=== PATIENT | female | born 1945 | race Caucasian/White ===

== ENCOUNTER 2017-10-20 01:16 | Inpatient (IN) | payer OTHER, MEDICAID ==
--- NOTE | 2017-10-20 01:42 | EDPHY ---
H & P Stated Complaint: AMS Time Seen by Provider: 10/20/17 01:19 HPI/ROS: HPI The patient presents with altered mental status which has been present for the last 1 hr. She is brought in by ambulance from [facility] where she has lived for the last several months in assisted living. She was found tonight to be less responsive than usual. Her urine was malodorous.. On review of her records it seems that she was admitted for hypoglycemia about 2 years ago. The patient is on able to provide any meaningful history due to her altered mental status.. She does have a most form with her stating that she would like CPR, would like selective treatment, does not want any artificial nutrition. REVIEW OF SYSTEMS Constitutional: Feels warm Eyes: No discharge. ENT: No sore throat. Cardiovascular: No chest pain, no palpitations. Respiratory: No cough, no shortness of breath. Gastrointestinal: No abdominal pain, no vomiting. Genitourinary: No hematuria. Musculoskeletal: No back pain. Skin: No rashes. Neurological: No headache. PMHx: Chronic encephalopathy of uncertain origin, diabetes, AFib on Eliquis, chronic hypoxic respiratory failure on 3-4 L of oxygen, CAD, sleep apnea, BKA, prior urinary tract infections Soc Hx: Resides at [facility] PHYSICAL General Appearance: Eyes open, though appears sleepy, tachypneic, diaphoretic Eyes: Pupils equal and round no pallor or injection ENT, Mouth: Mucous membranes dry Respiratory: There are no retractions, lungs are clear to auscultation, slightly tachypneic Cardiovascular: Regular rate and rhythm Gastrointestinal: Abdomen is obese and soft and non-tender, no masses, bowel sounds normal Neurological: Responds to simple questions, moves all extremities Skin: Warm and dry, no rashes Musculoskeletal: Neck is supple non tender Extremities: Left BKA Psychiatric: Patient is disoriented, stating yes when asked her name Source: Patient, EMS Exam Limitations: Clinical condition, Physical impairment - Medical/Surgical History Hx Asthma: Yes Hx Chronic Respiratory Disease: Yes Hx Diabetes: Yes Hx Cardiac Disease: Yes Hx Renal Disease: No Hx Cirrhosis: No Hx Alcoholism: No Hx HIV/AIDS: No Hx Splenectomy or Spleen Trauma: No Other PMH: morbid obesity, DM2 with peripheral neuropathy, hypothyroid, COPD, PE , CHF, HANY, asthma, GERD, afib, CAD, pain, depression - Social History Smoking Status: Unknown if ever smoked Constitutional: Initial Vital Signs Temperature (C) 38.6 C H 10/20/17 01:39 Heart Rate 109 H 10/20/17 01:39 Respiratory Rate 16 10/20/17 01:39 Blood Pressure 102/75 10/20/17 01:39 O2 Sat (%) 4 L 10/20/17 01:39 O2 Delivery Mode Oxymizer O2 (L/minute) 6 Allergies/Adverse Reactions: Cephalosporins Allergy (Verified 08/20/15 16:28) chlorpromazine Allergy (Verified 08/20/15 16:28) clarithromycin Allergy (Verified 08/20/15 16:28) clindamycin Allergy (Verified 08/20/15 16:28) doxycycline Allergy (Verified 08/20/15 16:28) erythromycin base Allergy (Verified 08/20/15 16:28) iodine Allergy (Verified 08/20/15 16:28) ketorolac Allergy (Verified 08/20/15 16:28) Latex, Natural Rubber Allergy (Verified 08/20/15 16:28) levofloxacin Allergy (Verified 08/20/15 16:28) Penicillins Allergy (Verified 08/20/15 16:28) Sulfa (Sulfonamide Antibiotics) Allergy (Verified 08/20/15 16:28) Home Medications: Medication Instructions Recorded ACETAZOLAMIDE [Acetazolamide] 500 mg PO BID 08/20/15 Acetaminophen [Tylenol 325mg (*)] 650 mg PO Q6 PRN 08/20/15 Amiodarone HCl [Pacerone (*)] 200 mg PO BID 08/20/15 Ascorbic Acid [Vitamin C 500 mg 500 mg PO BID 08/20/15 (*)] Atorvastatin Calcium [Lipitor 20 20 mg PO HS 08/20/15 mg (*)] Bupropion HCl [Bupropion HCl Sr] 100 mg PO DAILY 08/20/15 Diltiazem HCl [Diltiazem 24Hr Cd] 180 mg PO DAILY 08/20/15 Docusate Sodium [Colace 100 MG (*)] 100 mg PO BID 08/20/15 Ipratropium/Albuterol [Duoneb (*)] 3 ml IH Q4 PRN 08/20/15 Levothyroxine Sodium 200 mcg PO DAILY 06/27/16 Lidocaine 5% [Lidoderm 5% Patch] 1 ea TD DAILY 08/20/15 Nystatin Powder [Mycostatin Powder] 1 susu TP BID 08/20/15 Omeprazole [Prilosec 20 mg] 40 mg PO DAILY 08/20/15 Oxybutynin Chloride [OXYBUTYNIN 5 mg PO TID 08/20/15 CHLORIDE ER] Polyethylene Glycol 3350 [Miralax 17 gm PO DAILY 08/20/15 17 gm (*)] Potassium Cl [Klor-Con 20 meq (*)] 20 meq PO BID 08/20/15 Venlafaxine HCl [Effexor] 100 mg PO BID 08/20/15 oxyCODONE IR [Oxycodone Ir (*)] 5 mg PO Q4 PRN 08/20/15 traMADol [Ultram 50 mg (*)] 50 mg PO Q8 PRN 08/20/15 Albuterol [Proventil Neb] 3 ml IH Q2 PRN #0 deyvial 08/28/15 Alteplase [Cathflo Activase 2 mg 2 mg IVP PRN PRN #0 vial 08/28/15 (*)] Ipratropium/Albuterol [Duoneb (*)] 3 ml IH QID #0 deyvial 08/28/15 Meropenem [Merrem Inj 1 gm (*)] 1 gm IV Q12 #0 vial 08/28/15 Nystatin [Mycostatin Oral Liquid 500,000 unit PO QID #0 ml 08/28/15 (*)] Ondansetron Odt [Zofran Odt 4 mg 4 mg PO Q4 PRN #0 tab 08/28/15 (*)] Vancomycin HCl/Normal Saline 250 ml IV Q24H #0 bag 08/28/15 [Vancomycin 1 gm (Premix)] predniSONE 5 mg PO BIDMEAL #0 tablet 08/28/15 Medical Decision Making - Diagnostics EKG Interpretation: EKG: Complete interpretation has been separately recorded in the [facility] archive. Summary impression: Sinus tachycardia, QRS slightly wide, no ST segment elevations Imaging Results: Chest x-ray single view is difficult to interpret though shows cardiomegaly and possible left-sided infiltrate, radiology interpretation is pending. Imaging: I viewed and interpreted images myself Differential Diagnosis: 72-year-old female brought in by ambulance from long-term with altered mental status, found to be febrile and tachycardic here. Complex past medical history includes prior encephalopathy, diabetes, atrial fibrillation, chronic hypoxic respiratory failure, sleep apnea, CAD, BKA, prior urinary tract infection. The patient is able to answer simple questions though is altered. This seems to be a change from her baseline according to the long-term, however she does have some sort of history of chronic encephalopathy so difficult to assess how far from her baseline she is currently. When she was last in the hospital she did have a urinary tract infection with urine cultures positive for MRSA and Pseudomonas. This was treated with vancomycin and meropenem. In the emergency department, 2 IV lines were established and patient was given 2 L fluid bolus. I did not give full 30 cc/kilos bolus given her underlying heart disease. She improved with this and heart rate normalized. Blood pressure has remained stable. Labs were checked and did reveal leukocytosis of 20,000. UA was positive for infection. Chest x-ray was difficult to interpret though may demonstrate left- sided infiltrate. I plan to start her on broad-spectrum antibiotics for presumed urinary tract infection per her prior admission will use meropenem and vancomycin. Goals of care do include CPR though no intubation and avoiding intensive care. I consulted with Dr. Gabriel of the hospitalist service and we will admit her to the Step-Down Unit. Eventually we were able to contact her sister in [place] who is her DPOA She explained that over the last several months the patient has had a cognitive decline and has been confused occasionally. Her current mental status may not be far from her baseline. - Data Points Laboratory Results: Laboratory Results 10/20/17 01:44 10/20/17 01:44 10/20/17 10/20/17 10/20/17 01:44 01:44 01:44 WBC RBC Hgb Hct MCV MCH MCHC RDW Plt Count MPV Neut % (Auto) Lymph % (Auto) [place] % (Auto) Eos % (Auto) Baso % (Auto) Nucleat RBC Rel Count Absolute Neuts (auto) Absolute Lymphs (auto) Absolute Monos (auto) Absolute Eos (auto) Absolute Basos (auto) Absolute Nucleated RBC Immature Gran % Immature Gran # RBC/WBC/PLT Morphology Platelet Estimate Polychromasia Hypochromasia Microcytic Cells PT 17.8 SEC H SEC (12.0-15.0) INR 1.45 H (0.83-1.16) APTT 35.9 SEC SEC (23.0-38.0) VBG Lactic Acid Sodium 143 mEq/L mEq/L (135-145) Potassium 3.8 mEq/L mEq/L (3.3-5.0) Chloride 107 mEq/L mEq/L (97-110) Carbon Dioxide 30 mEq/l mEq/l (22-31) Anion Gap 6 mEq/L L mEq/L (8-16) BUN 18 mg/dL mg/dL (7-23) Creatinine 0.9 mg/dL mg/dL (0.6-1.0) Estimated GFR > 60 Glucose 142 mg/dL H mg/dL (70-100) Calcium 8.8 mg/dL mg/dL (8.5-10.4) Total Bilirubin 0.4 mg/dL mg/dL (0.1-1.4) Procalcitonin 0.45 ng/mL H ng/mL (0.02-0.10) Urine Color Urine Appearance Urine pH Ur Specific [place] Urine Protein Urine Ketones Urine Blood Urine Nitrate Urine Bilirubin Urine Urobilinogen Ur Leukocyte Esterase Urine RBC Urine WBC Ur Epithelial Cells Urine Mucus Urine Glucose 10/20/17 10/20/17 10/20/17 01:44 01:44 01:35 WBC 20.84 10^3/uL H 10^3/uL (3.80-9.50) RBC 3.79 10^6/uL L 10^6/uL (4.18-5.33) Hgb 9.7 g/dL L g/dL (12.6-16.3) Hct 34.2 % L % (38.0-47.0) MCV 90.2 fL fL (81.5-99.8) MCH 25.6 pg L pg (27.9-34.1) MCHC 28.4 g/dL L g/dL (32.4-36.7) RDW 16.1 % H % (11.5-15.2) Plt Count 233 10^3/uL 10^3/uL (150-400) MPV 9.2 fL fL (8.7-11.7) Neut % (Auto) 89.1 % H % (39.3-74.2) Lymph % (Auto) 2.0 % L % (15.0-45.0) Hale % (Auto) 7.7 % % (4.5-13.0) Eos % (Auto) 0.3 % L % (0.6-7.6) Baso % (Auto) 0.2 % L % (0.3-1.7) Nucleat RBC Rel Count 0.1 % % (0.0-0.2) Absolute Neuts (auto) 18.57 10^3/uL H 10^3/uL (1.70-6.50) Absolute Lymphs (auto) 0.42 10^3/uL L 10^3/uL (1.00-3.00) Absolute Monos (auto) 1.60 10^3/uL H 10^3/uL (0.30-0.80) Absolute Eos (auto) 0.06 10^3/uL 10^3/uL (0.03-0.40) Absolute Basos (auto) 0.04 10^3/uL 10^3/uL (0.02-0.10) Absolute Nucleated RBC 0.02 10^3/uL H 10^3/uL (0-0.01) Immature Gran % 0.7 % % (0.0-1.1) Immature Gran # 0.15 10^3/uL H 10^3/uL (0.00-0.10) RBC/WBC/PLT Morphology TNP Platelet Estimate ADEQUATE (ADEQ) Polychromasia 1+ H Hypochromasia 1+ H Microcytic Cells 1+ H PT INR APTT VBG Lactic Acid 1.4 mmol/L mmol/L (0.7-2.1) Sodium Potassium Chloride Carbon Dioxide Anion Gap BUN Creatinine Estimated GFR Glucose Calcium Total Bilirubin Procalcitonin Urine Color YELLOW Urine Appearance MODERATELY TURBID Urine pH 5.0 (5.0-7.5) Ur Specific [place] 1.019 (1.002-1.030) Urine Protein 1+ H (NEGATIVE) Urine Ketones NEGATIVE (NEGATIVE) Urine Blood 2+ H (NEGATIVE) Urine Nitrate NEGATIVE (NEGATIVE) Urine Bilirubin NEGATIVE (NEGATIVE) Urine Urobilinogen 2.0 EU H EU (0.2-1.0) Ur Leukocyte Esterase 2+ H (NEGATIVE) Urine RBC 50-182 /hpf H /hpf (0-3) Urine WBC 50-182 /hpf H /hpf (0-3) Ur Epithelial Cells TRACE /lpf /lpf (NONE-1+) Urine Mucus TRACE /lpf /lpf (NONE-1+) Urine Glucose NEGATIVE (NEGATIVE) Medications Given: Discontinued Medications Acetaminophen (Tylenol 160mg/5ml Oral Liquid) 1,000 mg PO EDNOW ONE Stop: 10/20/17 02:01 Last Admin: 10/20/17 02:07 Dose: 1,000 mg Meropenem 1 gm/ Sodium (Chloride) 120 mls @ 120 mls/hr IV EDNOW ONE PRN Reason: Protocol Stop: 10/20/17 02:46 Last Admin: 10/20/17 02:20 Dose: 120 mls Vancomycin HCl 1.5 gm/ (Dextrose) 250 mls @ 166.67 mls/hr IV EDNOW ONE PRN Reason: Protocol Stop: 10/20/17 03:16 Last Admin: 10/20/17 02:22 Dose: 250 mls Sodium Chloride (Ns) 2,000 mls @ 0 mls/hr IV EDNOW ONE; Wide Open PRN Reason: Protocol Stop: 10/20/17 02:06 Last Admin: 10/20/17 02:07 Dose: 2,000 mls Departure - Departure Disposition: [facility] Inpatient Acute Clinical Impression: Leukocytosis Urinary tract infection Qualifiers: Urinary tract infection type: site unspecified Hematuria presence: with hematuria Qualified Code(s): N39.0 - Urinary tract infection, site not specified ; R31.9 - Hematuria, unspecified; R31.9 - Hematuria, unspecified Altered mental status Qualifiers: Altered mental status type: somnolence Qualified Code(s): R40.0 - Somnolence Condition: Critical
[2017-10-20] MEDS ORDERED: MEROPENEM 1 GM in NS 100 ML IV ONE (01:47)
[2017-10-20] MEDS ORDERED: VANCOMYCIN 1.5 GM in D5W 250 ML IV ONE (01:47)
[2017-10-20 01:55] LABS: PLATELET COUNT 233 10^3/uL (150-400)
[2017-10-20] MEDS ORDERED: ACETAMINOPHEN 160 MG/5 ML UDCUP PO ONE (02:00)
[2017-10-20 02:03] LABS: INR 1.45 (0.83-1.16); PROTIME(PATIENT) 17.8 SEC (12.0-15.0)
[2017-10-20] MEDS ORDERED: NS 2,000 ML IV ONE (02:05)
[2017-10-20] MEDS ORDERED: ONDANSETRON DISINTEGRATING 4 MG TAB PO PRN (03:01)
[2017-10-20] MEDS ORDERED: ONDANSETRON 4 MG/2 ML VIAL IVP PRN (03:01)
--- NOTE | 2017-10-20 03:33 | PDGENHP ---
History and Physical - Chief Complaint Confusion - History of Present Illness 72 yo F w/ hx of morbid obesity, AF, CHRF, COPD, and PE presents with fever and altered mental status. Patient was noted by caregivers to be confused this evening. She was brought to the ED and noted to have a fever. She is unable to provide much history as she has depressed level of consciousness currently. She is arousable but inconsistently answers questions in one or two word phrases. She is A&Ox1 on my evaluation only able to tell me her name. Work-up in the ED notable for fever, leukocytosis, and infectious appearing UA. Of note, review of previous records reveals MRSA and Pseudomonas UTI. Case discussed with ED physician Dr. Nathan, previous records reviewed. History Information - Allergies/Home Medication List Allergies/Adverse Reactions: Cephalosporins Allergy (Verified 08/20/15 16:28) chlorpromazine Allergy (Verified 08/20/15 16:28) clarithromycin Allergy (Verified 08/20/15 16:28) clindamycin Allergy (Verified 08/20/15 16:28) doxycycline Allergy (Verified 08/20/15 16:28) erythromycin base Allergy (Verified 08/20/15 16:28) iodine Allergy (Verified 08/20/15 16:28) ketorolac Allergy (Verified 08/20/15 16:28) Latex, Natural Rubber Allergy (Verified 08/20/15 16:28) levofloxacin Allergy (Verified 08/20/15 16:28) Penicillins Allergy (Verified 08/20/15 16:28) Sulfa (Sulfonamide Antibiotics) Allergy (Verified 08/20/15 16:28) Home Medications: ACETAZOLAMIDE [Acetazolamide] 500 mg PO BID 08/20/15 [Last Taken Unknown] Acetaminophen [Tylenol 325mg (*)] 650 mg PO Q6 PRN 08/20/15 [Last Taken Unknown] Amiodarone HCl [Pacerone (*)] 200 mg PO BID 08/20/15 [Last Taken Unknown] Ascorbic Acid [Vitamin C 500 mg (*)] 500 mg PO BID 08/20/15 [Last Taken Unknown] Atorvastatin Calcium [Lipitor 20 mg (*)] 20 mg PO HS 08/20/15 [Last Taken Unknown] Bupropion HCl [Bupropion HCl Sr] 100 mg PO DAILY 08/20/15 [Last Taken Unknown] Diltiazem HCl [Diltiazem 24Hr Cd] 180 mg PO DAILY 08/20/15 [Last Taken Unknown] Docusate Sodium [Colace 100 MG (*)] 100 mg PO BID 08/20/15 [Last Taken Unknown] Ipratropium/Albuterol [Duoneb (*)] 3 ml IH Q4 PRN 08/20/15 [Last Taken Unknown] Levothyroxine Sodium 200 mcg PO DAILY 08/20/15 [Last Taken Unknown] Lidocaine 5% [Lidoderm 5% Patch] 1 ea TD DAILY 08/20/15 [Last Taken Unknown] Nystatin Powder [Mycostatin Powder] 1 susu TP BID 08/20/15 [Last Taken Unknown] Omeprazole [Prilosec 20 mg] 40 mg PO DAILY 08/20/15 [Last Taken Unknown] Oxybutynin Chloride [OXYBUTYNIN CHLORIDE ER] 5 mg PO TID 08/20/15 [Last Taken Unknown] Polyethylene Glycol 3350 [Miralax 17 gm (*)] 17 gm PO DAILY 08/20/15 [Last Taken Unknown] Potassium Cl [Klor-Con 20 meq (*)] 20 meq PO BID 08/20/15 [Last Taken Unknown] Venlafaxine HCl [Effexor] 100 mg PO BID 08/20/15 [Last Taken 08/20/15] oxyCODONE IR [Oxycodone Ir (*)] 5 mg PO Q4 PRN 08/20/15 [Last Taken Unknown] traMADol [Ultram 50 mg (*)] 50 mg PO Q8 PRN 08/20/15 [Last Taken Unknown] I have personally reviewed and updated: family history, medical history - Past Medical History atrial fibrillation, COPD, GERD, pulmonary embolism - Surgical History Additional surgical history: Unable to answer 2/2 mental status - Family History Additional family history: Unable to answer 2/2 mental status - Social History Smoking Status: Unknown if ever smoked Review of Systems Review of Systems: Unable to answer 2/2 mental status Physical Exam Physical Exam: Temp Pulse Resp BP Pulse Ox 38.2 C 96 20 109/66 95 10/20/17 03:21 10/20/17 03:21 10/20/17 03:21 10/20/17 03:21 10/20/17 03:21 O2 (L/minute) 4 Constitutional: obese, uncomfortable Eyes: PERRL, anicteric sclera Ears, Nose, Mouth, Throat: moist mucous membranes, no oral mucosal ulcers Cardiovascular: regular rate and rhythym, systolic murmur Respiratory: reduced air movement, No expiratory wheeze Gastrointestinal: normoactive bowel sounds, soft, non-tender abdomen Skin: warm, normal color Musculoskeletal: no joint effusions, other (S/p L BKA) Neurologic: other (A&Ox1), No facial droop Psychiatric: encephalopathic, poor insight, poor memory Lab Data & Imaging Review 10/20/17 01:44 10/20/17 01:44 WBC 20.84 10^3/uL (3.80-9.50) H 10/20/17 01:44 RBC 3.79 10^6/uL (4.18-5.33) L 10/20/17 01:44 Hgb 9.7 g/dL (12.6-16.3) L 10/20/17 01:44 Hct 34.2 % (38.0-47.0) L 10/20/17 01:44 MCV 90.2 fL (81.5-99.8) 10/20/17 01:44 MCH 25.6 pg (27.9-34.1) L 10/20/17 01:44 MCHC 28.4 g/dL (32.4-36.7) L 10/20/17 01:44 RDW 16.1 % (11.5-15.2) H 10/20/17 01:44 Plt Count 233 10^3/uL (150-400) 10/20/17 01:44 MPV 9.2 fL (8.7-11.7) 10/20/17 01:44 Neut % (Auto) 89.1 % (39.3-74.2) H 10/20/17 01:44 Lymph % (Auto) 2.0 % (15.0-45.0) L 10/20/17 01:44 [place] % (Auto) 7.7 % (4.5-13.0) 10/20/17 01:44 Eos % (Auto) 0.3 % (0.6-7.6) L 10/20/17 01:44 Baso % (Auto) 0.2 % (0.3-1.7) L 10/20/17 01:44 Nucleat RBC Rel Count 0.1 % (0.0-0.2) 10/20/17 01:44 Absolute Neuts (auto) 18.57 10^3/uL (1.70-6.50) H 10/20/17 01:44 Absolute Lymphs (auto) 0.42 10^3/uL (1.00-3.00) L 10/20/17 01:44 Absolute Monos (auto) 1.60 10^3/uL (0.30-0.80) H 10/20/17 01:44 Absolute Eos (auto) 0.06 10^3/uL (0.03-0.40) 10/20/17 01:44 Absolute Basos (auto) 0.04 10^3/uL (0.02-0.10) 10/20/17 01:44 Absolute Nucleated RBC 0.02 10^3/uL (0-0.01) H 10/20/17 01:44 Immature Gran % 0.7 % (0.0-1.1) 10/20/17 01:44 Immature Gran # 0.15 10^3/uL (0.00-0.10) H 10/20/17 01:44 RBC/WBC/PLT Morphology TNP 10/20/17 01:44 Platelet Estimate ADEQUATE (ADEQ) 10/20/17 01:44 Polychromasia 1+ H 10/20/17 01:44 Hypochromasia 1+ H 10/20/17 01:44 Microcytic Cells 1+ H 10/20/17 01:44 PT 17.8 SEC (12.0-15.0) H 10/20/17 01:44 INR 1.45 (0.83-1.16) H 10/20/17 01:44 APTT 35.9 SEC (23.0-38.0) 10/20/17 01:44 VBG Lactic Acid 1.4 mmol/L (0.7-2.1) 10/20/17 01:44 Sodium 143 mEq/L (135-145) 10/20/17 01:44 Potassium 3.8 mEq/L (3.3-5.0) 10/20/17 01:44 Chloride 107 mEq/L (97-110) 10/20/17 01:44 Carbon Dioxide 30 mEq/l (22-31) 10/20/17 01:44 Anion Gap 6 mEq/L (8-16) L 10/20/17 01:44 BUN 18 mg/dL (7-23) 10/20/17 01:44 Creatinine 0.9 mg/dL (0.6-1.0) 10/20/17 01:44 Estimated GFR > 60 10/20/17 01:44 Glucose 142 mg/dL (70-100) H 10/20/17 01:44 Calcium 8.8 mg/dL (8.5-10.4) 10/20/17 01:44 Total Bilirubin 0.4 mg/dL (0.1-1.4) 10/20/17 01:44 Urine Color YELLOW 10/20/17 01:35 Urine Appearance MODERATELY TURBID 10/20/17 01:35 Urine pH 5.0 (5.0-7.5) 10/20/17 01:35 Ur Specific [place] 1.019 (1.002-1.030) 10/20/17 01:35 Urine Protein 1+ (NEGATIVE) H 10/20/17 01:35 Urine Ketones NEGATIVE (NEGATIVE) 10/20/17 01:35 Urine Blood 2+ (NEGATIVE) H 10/20/17 01:35 Urine Nitrate NEGATIVE (NEGATIVE) 10/20/17 01:35 Urine Bilirubin NEGATIVE (NEGATIVE) 10/20/17 01:35 Urine Urobilinogen 2.0 EU (0.2-1.0) H 10/20/17 01:35 Ur Leukocyte Esterase 2+ (NEGATIVE) H 10/20/17 01:35 Urine RBC 50-182 /hpf (0-3) H 10/20/17 01:35 Urine WBC 50-182 /hpf (0-3) H 10/20/17 01:35 Ur Epithelial Cells TRACE /lpf (NONE-1+) 10/20/17 01:35 Urine Mucus TRACE /lpf (NONE-1+) 10/20/17 01:35 Urine Glucose NEGATIVE (NEGATIVE) 10/20/17 01:35 Visualized and Interpreted Chest x-ray results: Yes Chest X-Ray results: other (Infiltrate vs. aletectasis LLL) Visualized and Interpreted EKG results: Yes EKG Interpretation: Positive for: normal sinsus rhythm, NS ST wave abnormalities Assessment & Plan Assessment: 72 yo F w/ AF, CHRF, COPD, PE, and morbid obesity presents with sepsis most likely 2/2 urinary tract infection. Plan: 1. Sepsis - Suspect source is urinary noting appearance of UA. She does have infiltrate vs. atelectasis LLL on CXR(personally interpreted) but denies respiratory symptoms and is near O2 baseline currently. 4/4 SIRS criteria currently and SOFA of 7. - Vancomycin and Meropenem initially noting history of MRSA and Pseudomonas ( previous ID recs) - Blood and urine cultures pending - IVF, monitor I/Os 2. Acute encephalopathy - Likely related to sepsis described above. Patient currently A&Ox1 only. - Acute treatment of infection as above - Avoid centrally acting medications 3. CHRF - 4 L/min O2 at baseline, currently saturating low 90's on the same. Suspect this is due to HANY/OHS + COPD. - Continue O2 to maintain O2 sats>90% 4. AF - In NSR on admission; on diltiazem, amiodarone, and apixaban as outpatient. - Needs med reconciliation 5. Hx PE - On apixaban as outpatient 6. Morbid obesity - BMI 48.8. 7. COPD - Continue home medications, no evidence of acute exacerbation. Diet - NPO until mental status improves Code - Full Ppx - apixaban Dispo - Admit under inpatient status noting sepsis and need for IV antibiotics
--- NOTE | 2017-10-20 07:00 | CPEKG ---
Test Reason : OPEN Blood Pressure : / mmHG Vent. Rate : 102 BPM Atrial Rate : 102 BPM P-R Int : 197 ms QRS Dur : 117 ms QT Int : 332 ms P-R-T Axes : 029 090 009 degrees QTc Int : 433 ms Sinus tachycardia Nonspecific intraventricular conduction delay Borderline T abnormalities, anterior leads ST elevation, consider inferior injury Confirmed by Nimco Nathan ([id number]) on 10/20/2017 6:59:59 AM Referred By: Confirmed By:Nimco Nathan
--- NOTE | 2017-10-20 08:37 | ASMTLACE ---
NICOLLE Acuity / Level of Answers: Yes Care: Did the patient have an inpatient admission? Comorbidities - select Answers: Chronic pulmonary disease all that apply Congestive heart failure Coronary Artery Disease Diabetes (uncontrolled or controlled) Opioid dependence / Chronic pain Other Notes: AFib; Hx of PE # of Emergency department Answers: 1-2 visits in the last 6 months Social determinants Answers: Mental health diagnosis (anxiety, depression, pers onality disorders, etc.) Score: 19 Date Signed: 10/20/2017 08:36 AM Electronically Signed By:Vianney Power
[2017-10-20] MEDS ORDERED: ENOXAPARIN 40 MG/0.4 ML SYR SC SCH (09:00)
[2017-10-20] MEDS: MEROPENEM 1 GM in NS 100 ML IV SCH ×2 (09:15→19:09)
--- NOTE | 2017-10-20 10:09 | ASMTCASEMG ---
Living Arrangements What is your living Answers: With Spouse arrangement? Who do you live with? Type Of Residence What kind of residence do Answers: Apartment you live in? Discharge Plan Comments Coordination Status Comments Notes: Patient is a 72yo female with HX of morbid obesity, AF, CHRF, COPD, and PE presents with fever and altered mental status. Patient was admitted for sepsis, acute encephalopathy, CHRF and AF. Cardiac rehab has been ordered. D/C needs TBD. CM will follow. Date Signed: 10/20/2017 09:49 AM Electronically Signed By:Amarilis Oconnell LCSW
--- NOTE | 2017-10-20 10:18 | HOSPPROG ---
Hospitalist Progress Note Assessment/Plan: HOSPITALIST FOLLOW-UP VISIT ON ADMISSION DAY DIAGNOSES: * acute sepsis * acute urinary tract infection * acute encephalopathy due to above * normocytic anemia * chronic hypoxemic respiratory failure and COPD * history of PE * history of AFib with currently inadequate anticoagulation for stroke prevention PLANS: * Continue current antibiotics * Continue IV hydration as she is not hydrating orally * Increase activity/mobility as she becomes able, PT and OT * As she is unable to safely swallow will need to make her NPO and hold her on her oral medicines at this time SUBJECTIVE: Patient is unable to hold a conversation to review any symptoms at this time OBJECTIVE Vitals reviewed: Intermittently tachypneic otherwise stable blood pressures and pulse so far this morning, highest temperature overnight 39 Electrical Test Technician, my review: Sinus Exam: Awake but moderately obtunded, not really conversant, unable to have a conversation, following commands poorly (per nurses report to me this is better than when she came in last night) skin warm dry color ok resps not labored lungs very diminished, hard to auscultate with poor inspiratory effort heart regular abd soft nondistended nontender, bowel sounds present limbs warm, no edema iv site ok Laboratory data: No new labs since admission at this time Greater than 35 min spent at bedside with the patient and nurse today in addition to the time previously spent by Dr. Chica Mejia on his admission. Seen by me on hospitalist rounds as well as multidisciplinary rounds today Objective: Vital Signs Temp Pulse Resp BP Pulse Ox 36.8 C 78 21 H 142/80 H 96 10/20/17 07:45 10/20/17 07:45 10/20/17 07:45 10/20/17 07:45 10/20/17 07:45 10/19/17 10/20/17 10/21/17 06:59 06:59 06:59 Intake Total 2000 Output Total 30 Balance 1970 PT 17.8 SEC (12.0-15.0) H 10/20/17 01:44 INR 1.45 (0.83-1.16) H 10/20/17 01:44 ICD10 Worksheet Patient Problems: Problems Problem Status Onset Altered mental status Acute Leukocytosis Acute Urinary tract infection Acute Chronic atrial fibrillation Acute Hypoglycemia Acute MRSA (methicillin resistant Staphylococcus aureus) Acute 08/20/15 Palliative care encounter Acute
--- NOTE | 2017-10-20 11:04 | PDMN ---
Medical Necessity Medical necessity: [facility] [place] M160 Sepsis and Other Febrile Illness, w/o Focal Infection: 72 y/o w/ fever and AMS, dx w/ sepsis, suspected source urinary. Temp 39C. Tachy 109. WBC 20.84IV antix started, IVF started, BC and UC pending. Acute encephalopathy r/t sepsis. NPO status. Admit under IP status noting sepsis and need for IV antibx. . Hx morbid obesity, AF, CHRF, COPD and PE, MRSA and pseudomonas UTI
[2017-10-20] MEDS: VANCOMYCIN 1.5 GM in NS 250 ML IV SCH (17:01)
[2017-10-20 19:45] LABS: PLATELET COUNT 242 10^3/uL (150-400)
[2017-10-21] MEDS: MEROPENEM 1 GM in NS 100 ML IV SCH ×3 (01:48→17:38)
[2017-10-21] MEDS: VANCOMYCIN 1.5 GM in NS 250 ML IV SCH (05:11)
[2017-10-21] MEDS ORDERED: PNEUMOC 13-VAL CONJ-DIP CRM/PF 0.5 ML SYR IM ONE ×2 (11:13→16:00)
[2017-10-21] MEDS ORDERED: ONDANSETRON DISINTEGRATING 4 MG TAB PO PRN (15:00)
[2017-10-21] MEDS ORDERED: IPRATROPIUM/ALBUTEROL 3 ML DEYVIAL IH PRN (15:00)
[2017-10-21] MEDS: AMIODARONE HCL 200 MG TAB PO SCH (15:58)
--- NOTE | 2017-10-21 16:18 | HOSPPROG ---
Hospitalist Progress Note Assessment/Plan: 72 yo F w/ AF, CHRF, COPD, PE, and morbid obesity presents with sepsis most likely 2/2 urinary tract infection. Plan: 1. Sepsis/Bacteremia - Suspect source is urinary noting appearance of UA. She does have infiltrate vs. atelectasis LLL on CXR(personally interpreted) but denies respiratory symptoms and is near O2 baseline currently. 4/4 SIRS criteria currently and SOFA of 7. -E-coli 1/2 BCx 2. Acute encephalopathy - Likely related to sepsis described above. Patient currently A&Ox1 only. - Acute treatment of infection as above - Avoid centrally acting medications 3. CHRF - 4 L/min O2 at baseline, currently saturating low 90's on the same. Suspect this is due to HANY/OHS + COPD. - Continue O2 to maintain O2 sats>90% 4. AF - In NSR on admission; on diltiazem, amiodarone, and apixaban 5. Hx PE - On apixaban 6. Morbid obesity - BMI 48.8. 7. COPD - Continue home medications, no evidence of acute exacerbation. Plan: stop Vancomycin Cont Meropenem, if stable tomorrow, consider deescalating further. multiple abx allergies noted PT ordered today restart home meds today Subjective: doing better. no resp sympotms. no cough. feels better Objective: Vital Signs Temp Pulse Resp BP Pulse Ox 36.4 C 73 16 119/64 91 L 10/21/17 15:41 10/21/17 15:41 10/21/17 15:41 10/21/17 15:41 10/21/17 15:41 Laboratory Results 10/20/17 18:10 10/20/17 18:10 10/20/17 10/21/17 10/22/17 05:59 05:59 05:59 Intake Total 1999 1220 400 Output Total 30 275 2300 Balance 1969 945 -1900 PT 17.8 SEC (12.0-15.0) H 10/20/17 01:44 INR 1.45 (0.83-1.16) H 10/20/17 01:44 - Physical Exam Constitutional: chronically ill appearing Eyes: PERRL Ears, Nose, Mouth, Throat: moist mucous membranes Cardiovascular: regular rate and rhythym, No edema Respiratory: no respiratory distress, no rales or rhonchi Gastrointestinal: normoactive bowel sounds, soft, non-tender abdomen Skin: warm Musculoskeletal: generalized weakness Neurologic: AAOx3 Psychiatric: interacting appropriately, not anxious, not encephalopathic Lymph, Heme, Immunologic: No petechiae ICD10 Worksheet Patient Problems: Problems Problem Status Onset Altered mental status Acute Leukocytosis Acute Urinary tract infection Acute Chronic atrial fibrillation Acute Hypoglycemia Acute MRSA (methicillin resistant Staphylococcus aureus) Acute 08/20/15 Palliative care encounter Acute
[2017-10-21] MEDS ORDERED: LIDOCAINE 4%/MENTHOL 1% PATCH TD PRN (16:45)
[2017-10-21] MEDS: APIXABAN 5 MG TAB PO SCH (20:57)
[2017-10-21] MEDS: ACETAMINOPHEN 325 MG TAB PO PRN (20:57)
[2017-10-21] MEDS: ATORVASTATIN CALCIUM 20 MG TAB PO SCH (20:57)
[2017-10-21] MEDS: NYSTATIN POWDER 15 GM BTL TP SCH (20:58)
[2017-10-21] MEDS: PATCH REMOVAL 1 EA PATCH TD SCH (22:34)
[2017-10-21] MEDS: oxyCODONE IR 5 MG TAB PO PRN (23:13)
[2017-10-22] MEDS: MEROPENEM 1 GM in NS 100 ML IV SCH ×3 (02:08→19:09)
[2017-10-22] MEDS ORDERED: LEVOTHYROXINE 175 MCG TAB ONE (03:43)
[2017-10-22] MEDS: ACETAMINOPHEN 325 MG TAB PO PRN ×3 (03:53→21:36)
[2017-10-22] MEDS: LEVOTHYROXINE 175 MCG TAB PO SCH (03:53)
[2017-10-22 04:31] LABS: PLATELET COUNT 264 10^3/uL (150-400)
[2017-10-22] MEDS: VENLAFAXINE XR 75 MG CAP PO SCH (08:45)
[2017-10-22] MEDS: PANTOPRAZOLE SODIUM 40 MG TAB PO SCH (08:46)
[2017-10-22] MEDS: APIXABAN 5 MG TAB PO SCH ×2 (08:46→21:37)
[2017-10-22] MEDS: predniSONE 5 MG TAB PO SCH (08:46)
[2017-10-22] MEDS: DILTIAZEM CD 180 MG CAP PO SCH (08:47)
[2017-10-22] MEDS: AMIODARONE HCL 200 MG TAB PO SCH (08:48)
[2017-10-22] MEDS: VENLAFAXINE XR 37.5 MG CAP PO SCH (08:48)
[2017-10-22] MEDS: NYSTATIN POWDER 15 GM BTL TP SCH ×2 (10:19→21:37)
--- NOTE | 2017-10-22 13:53 | ASMTCMCOM ---
CM Note CM Note Notes: Pts case discussed w/ Dr. Herrera regarding d/c POC. Pt lives at [facility]. CM spoke to Orion at [facility] and sent him updates. CM to follow. Plan: [facility] Date Signed: 10/22/2017 01:53 PM Electronically Signed By:DARON Alejandre
[2017-10-22] MEDS: oxyCODONE IR 5 MG TAB PO PRN (18:06)
--- NOTE | 2017-10-22 18:09 | HOSPPROG ---
Hospitalist Progress Note Assessment/Plan: 72 yo F w/ AF, CHRF, COPD, PE, and morbid obesity presents with sepsis most likely 2/2 urinary tract infection. Plan: # Sepsis - presumed due to urinary source, no longer meeting sepsis criteria # e coli bacteremia: urinary source, has been on meropenem given multiple allergies however is sensitive to levofloxacin which she is not allergic to, will transtion for a 2 week total course. Repeat cultures drawn today # UTI: patient not with a chronic pavon, she does use diapers at home, multiple organisms noted on urine culture all with high colony counts, reviewed with ID, clearly it is the e coli causing her illness so will target treatment to that only # acute encephalopathy: due to sepsis and now resolved # chronic hypoxic respiratory failure: baseline 4L o2 need, at baseline, underlying steph/ohs/copd # p a fib: SR on personal review of arrival ecg, continue dilt, amiodarone, apixaban # hx of PE: continue apixaban # morbid obesity: BMI 57 # COPD: without e/o exacerbation # IP status, patient resides at [facility], likely ready for dc in coming 1- 2 days Subjective: no significant overnight events, patient notes that hse feels better today more herself and more alert Objective: Vital Signs Temp Pulse Resp BP Pulse Ox 36.5 C 81 16 154/85 H 95 10/22/17 16:00 10/22/17 16:00 10/22/17 16:00 10/22/17 16:00 10/22/17 16:00 Laboratory Results 10/22/17 03:53 10/22/17 03:53 10/21/17 10/22/17 10/23/17 05:59 05:59 05:59 Intake Total 1220 1350 270 Output Total 275 3400 500 Balance 945 -2050 -230 PT 17.8 SEC (12.0-15.0) H 10/20/17 01:44 INR 1.45 (0.83-1.16) H 10/20/17 01:44 Constitutional: chronically ill appearing Eyes: PERRL Ears, Nose, Mouth, Throat: moist mucous membranes Cardiovascular: regular rate and rhythym, No edema Respiratory: no respiratory distress, no rales or rhonchi Gastrointestinal: normoactive bowel sounds, soft, non-tender abdomen Skin: warm Musculoskeletal: generalized weakness Neurologic: AAOx3 Psychiatric: interacting appropriately, not anxious, not encephalopathic Lymph, Heme, Immunologic: No petechiae ICD10 Worksheet Patient Problems: Problems Problem Status Onset Altered mental status Acute Leukocytosis Acute Urinary tract infection Acute Chronic atrial fibrillation Acute Hypoglycemia Acute MRSA (methicillin resistant Staphylococcus aureus) Acute 08/20/15 Palliative care encounter Acute
[2017-10-22] MEDS: ATORVASTATIN CALCIUM 20 MG TAB PO SCH (21:37)
[2017-10-22] MEDS: PATCH REMOVAL 1 EA PATCH TD SCH (21:41)
[2017-10-23] MEDS: oxyCODONE IR 5 MG TAB PO PRN (01:48)
[2017-10-23] MEDS: LEVOTHYROXINE 175 MCG TAB PO SCH (01:49)
[2017-10-23] MEDS: ACETAMINOPHEN 325 MG TAB PO PRN ×2 (09:09→19:04)
[2017-10-23] MEDS: APIXABAN 5 MG TAB PO SCH ×2 (09:10→22:18)
[2017-10-23] MEDS: VENLAFAXINE XR 75 MG CAP PO SCH (09:12)
[2017-10-23] MEDS: predniSONE 5 MG TAB PO SCH (09:13)
[2017-10-23] MEDS: VENLAFAXINE XR 37.5 MG CAP PO SCH (09:13)
[2017-10-23] MEDS: AMIODARONE HCL 200 MG TAB PO SCH (09:13)
[2017-10-23] MEDS: DILTIAZEM CD 180 MG CAP PO SCH (09:14)
[2017-10-23] MEDS: PANTOPRAZOLE SODIUM 40 MG TAB PO SCH (09:15)
[2017-10-23] MEDS ORDERED: ALTEPLASE 2 MG VIAL IVP PRN (10:34)
[2017-10-23] MEDS: NYSTATIN POWDER 15 GM BTL TP SCH ×2 (11:02→22:18)
--- NOTE | 2017-10-23 11:05 | GCON ---
[f rep st] CONSULTATION DATE OF CONSULTATION: 10/23/2017 REFERRING PHYSICIAN: Christiano Herrera MD REASON FOR CONSULT: To assist in the management of this 72-year-old female admitted with E coli bacteremia from a urinary source, with multiple antibiotic allergies. HISTORY OF PRESENT ILLNESS: Ms. Olsen is a 72-year-old female whose previous medical history is notable for the following. 1. Morbid obesity. 2. Atrial fibrillation. 3. COPD. 4. Pulmonary embolus. 5. CAD. 6. Sleep apnea. 7. Previous urinary tract infections. 8. Left BKA. Regarding her present issues, the patient normally resides at [facility]. She presented to [facility] on October 20 via EMS for diminished responsiveness and concern for sepsis from a urinary source, as her urine was found to be malodorous. In the emergency room, the patient had a white blood cell count of 20,000, and her urinalysis was notable for pyuria with 50-182 whites, 1+ protein, 2+ blood, and 2+ leukocyte esterase. Blood cultures were drawn, and the patient was started on vancomycin and meropenem empirically. Blood cultures ultimately grew E coli. She was continued on meropenem on the floor (she never required pressors or the Intensive Care Unit). Yesterday, she was switched to levofloxacin given susceptibilities of the E coli. The patient , of note, has multiple antibiotic allergies, but apparently is not allergic to the quinolone family of antibiotics. I am asked to assist in her management this morning. Looking at the patient's medications, it is unfortunate that there is a notable drug interaction with levofloxacin and 1 of her cardiac medicines, amiodarone, which can cause QTc prolongation. Please see plan as outlined below. Speaking with the patient today, she is in good spirits and feels much better overall. She still has a Joaquin catheter in place. She denies shaking chills, headaches, chest pain, shortness of breath, abdominal pain, diarrhea, or other. The patient is uncomfortable in the bed. ALLERGIES: The patient has multiple allergies that I tried to review with her today. She states that she had a severe rash from cephalosporins. It is also listed that she has a rash to chlorpromazine, clarithromycin, clindamycin, and several other medicines. MEDICATIONS: Presently include levofloxacin 750 mg of which she was given 1 dose, Effexor XR 150 mg/37.5 mg, prednisone 5 mg daily, pantoprazole 40 mg p.o. daily, oxycodone, Zofran, Synthroid 175 mcg daily, atorvastatin 20 mg HS, Cardizem 100 mg p.o. daily. Eliquis 5 mg p.o. twice daily, amiodarone 200 mg p.o. daily, duo nebs, and Tylenol. SOCIAL HISTORY: The patient does not smoke or drink. She lives at [facility]. No travel. FAMILY HISTORY: Not remarkable. REVIEW OF SYSTEMS: As outlined above. Otherwise, 10 systems are reviewed and are negative. PHYSICAL EXAM: VITAL SIGNS: T current is 37.1, T-max is the same, heart rate is 67, blood pressure 173/73, 91% on 2 L. General: Morbidly obese female, sitting in bed eating and watching TV. No apparent distress. Atraumatic, normocephalic. HEENT: Pupils equal, round, reactive to light. Extraocular movements are intact. No conjunctival injection. No icterus or petechiae. No sinus process tenderness or discharge from the nares. Mucous membranes moist. No oral lesions noted. Dentition in fair repair. NECK: Trachea is midline. No cervical or supraclavicular lymphadenopathy. CARDIOVASCULAR: S1, S2. No audible rubs, gallops, or murmurs although very distant heart sounds secondary to body habitus. LUNGS: Clear to auscultation anterolaterally. ABDOMEN: Obese, soft. No tenderness to palpation. A Joaquin catheter is in place. There is some skin maceration under her pannus that looks more like an abrasion as opposed to intertriginous candidiasis. EXTREMITIES: No clubbing, cyanosis, or edema. The patient is status post a left BKA with a well-healed stump. SKIN: Notable for multiple ecchymoses on her arms and hands and some scaly skin on her right foot. PSYCH: The patient is alert and oriented x3. LABORATORY DATA: Microbiologic data: Blood cultures x2 on the are pending. Blood cultures on October 12 grew E coli, resistant only to ampicillin. The urine specimen from October 20 grew greater than 100,000 colonies of Providencia stuartii, greater than 100,000 colonies of E coli, greater than 100,000 colonies of Proteus mirabilis. All organisms are susceptible to ertapenem. Radiographic data: None with the exception of a chest x-ray upon admission that was notable for some atelectasis. IMPRESSION: 72-year-old morbidly obese female with multiple medical problems, admitted with E coli sepsis from a urinary source. She has multiple antibiotic allergies that preclude the use of cephalosporins and unfortunately, the quinolones interact with amiodarone, precluding their use as well. PLAN: 1. The patient will require a PICC line for 7 more days of therapy with ertapenem 1 g IV daily. Stop date is October 30. 2. Would try to get Joaquin catheter out as soon as possible and encourage good genitourinary hygiene. 3. Discontinue levofloxacin. 4. The patient will get her 1st dose of ertapenem tomorrow and can likely go back to [facility] shortly thereafter. Suspect she will tolerate this antibiotic just fine, as she tolerated meropenem without incident. Thank you very much for consulting Infectious Disease. We will continue to follow the patient with you. /[id number]/MODL MTDD
[2017-10-23] MEDS: oxyCODONE IR 5 MG TAB PO SCH ×2 (12:05→22:18)
--- NOTE | 2017-10-23 12:07 | HOSPPROG ---
Hospitalist Progress Note Assessment/Plan: # UTI with e. coli bacteremia - given multiple abx sensitivities, ID plans 7 day course of invanz # sepsis (leuk, febrile) d/t above - resolved # acute on chronic encephalopathy - most c/w delirium in a patient - non-focal exam, doubt CVA - she had not been getting her home oxy - will restart that and follow # chronic hypoxic resp failure/OHS/COPD - cont 4L O2 # paroxysmal a-fib - cont eliquis - cont amio, dilt # hx PE - eliquis # morbid obesity - BMI 57 # social - permanently resides at [facility] Subjective: seeing spiderwebs today Objective: Vital Signs Temp Pulse Resp BP Pulse Ox 37.1 C 67 18 173/73 H 81 L 10/23/17 08:00 10/23/17 08:00 10/23/17 08:00 10/23/17 08:00 10/23/17 08:42 Laboratory Results 10/22/17 03:53 10/22/17 03:53 10/22/17 10/23/17 10/24/17 05:59 05:59 05:59 Intake Total 1350 2370 Output Total 3400 2024 Balance -2049 345 PT 17.8 SEC (12.0-15.0) H 10/20/17 01:44 INR 1.45 (0.83-1.16) H 10/20/17 01:44 chart reviewed CXR reviewed - Physical Exam Constitutional: chronically ill appearing, obese Cardiovascular: regular rate and rhythym, no murmur, rub, or gallop Respiratory: no respiratory distress, no rales or rhonchi, reduced air movement Gastrointestinal: soft, non-tender abdomen, no palpable masses, No guarding, No rebound Neurologic: other (moving all extr; no pronator drift, no facial droop) ICD10 Worksheet Patient Problems: Problems Problem Status Onset Urinary tract infection Acute Hypoglycemia Acute Chronic atrial fibrillation Acute Altered mental status Acute Palliative care encounter Acute MRSA (methicillin resistant Staphylococcus aureus) Acute 08/20/15 Leukocytosis Acute
--- NOTE | 2017-10-23 12:28 | ASMTCMCOM ---
CM Note CM Note Notes: 10/23/2017 Case Management Note Discussed case with Orion from [facility] in person. Orion can be reached at [phone]. Per ID note pt to have PICC placed and 7 days of ertapenam. Planning for d/c over the weekend. Orion in agreement. Faxed updates to [facility]. Case Management d/c poc: return to [facility] where pt resides. Case Management to follow. Date Signed: 10/23/2017 12:28 PM Electronically Signed By:Whitney Roland RN
[2017-10-23] MEDS ORDERED: PNEUMOC 13-VAL CONJ-DIP CRM/PF 0.5 ML SYR IM ONE ×2 (14:34→18:30)
[2017-10-23] MEDS: ATORVASTATIN CALCIUM 20 MG TAB PO SCH (22:17)
[2017-10-23] MEDS: PATCH REMOVAL 1 EA PATCH TD SCH (22:18)
[2017-10-24] MEDS: ACETAMINOPHEN 325 MG TAB PO PRN ×2 (03:28→10:27)
[2017-10-24] MEDS: LEVOTHYROXINE 175 MCG TAB PO SCH (03:28)
[2017-10-24 04:55] LABS: PLATELET COUNT 309 10^3/uL (150-400)
[2017-10-24 07:54] VITALS: BP 151/72
[2017-10-24] MEDS ORDERED: ERTAPENEM 1 GM in NS 100 ML IV SCH (09:00)
--- NOTE | 2017-10-24 09:31 | PDIAF ---
- Diagnosis Diagnosis: e. coli sepsis, UTI and bacteremia Code Status: Full Code - Medication Management Discharge Medications: Medications to Continue on Transfer Acetaminophen [Tylenol 325mg (*)] 650 mg PO DAILY 08/20/15 [Last Taken Unknown] Amiodarone HCl [Pacerone (*)] 200 mg PO DAILY 08/20/15 [Last Taken Unknown] Atorvastatin Calcium [Lipitor 20 mg (*)] 20 mg PO HS 08/20/15 [Last Taken Unknown] Diltiazem HCl [Diltiazem 24Hr Cd] 180 mg PO DAILY 08/20/15 [Last Taken Unknown] Docusate Sodium [Colace 100 MG (*)] 200 mg PO BID 08/20/15 [Last Taken Unknown] Lidocaine 5% [Lidoderm 5% Patch] 1 ea TD DAILY PRN 08/20/15 [Last Taken Unknown] Nystatin Powder [Mycostatin Powder] 1 susu TP BID 08/20/15 [Last Taken Unknown] Omeprazole [Prilosec 20 mg] 20 mg PO DAILY 08/20/15 [Last Taken Unknown] Potassium Cl [Klor-Con 20 meq (*)] 20 meq PO BID 08/20/15 [Last Taken Unknown] oxyCODONE IR [Oxycodone Ir (*)] 5 mg PO Q8HRS PRN 08/20/15 [Last Taken Unknown] Acetaminophen [Tylenol 325mg (*)] 650 mg PO Q4HRS PRN 10/20/17 [Last Taken Unknown] Apixaban [Eliquis] 5 mg PO BID 10/20/17 [Last Taken Unknown] Bisacodyl [Dulcolax] 10 mg RC DAILY PRN 10/20/17 [Last Taken Unknown] Fluticasone/Vilanterol [Breo Ellipta 200-25 Mcg INH] 1 each IH DAILY 10/20/17 [ Last Taken Unknown] Ipratropium/Albuterol [Duoneb (*)] 3 ml IH Q4HRS PRN 10/20/17 [Last Taken Unknown] Levothyroxine [Synthroid 175 mcg (*)] 175 mcg PO DAILY06 10/20/17 [Last Taken Unknown] Ondansetron Odt [Zofran Odt 4 mg (*)] 4 mg PO Q6HRS PRN 10/20/17 [Last Taken Unknown] Venlafaxine Xr [Effexor Xr 37.5MG (*)] 37.5 mg PO DAILY 10/20/17 [Last Taken Unknown] Venlafaxine Xr [Effexor Xr 75MG (*)] 150 mg PO DAILY 10/20/17 [Last Taken Unknown] acetaZOLAMIDE [Diamox] 500 mg PO BID 10/20/17 [Last Taken Unknown] guaiFENesin [Mucinex 600 MG (*)] 600 mg PO BID PRN 10/20/17 [Last Taken Unknown] oxyCODONE IR [Oxycodone Ir (*)] 5 mg PO BID 10/20/17 [Last Taken Unknown] predniSONE 5 mg PO DAILY 10/20/17 [Last Taken Unknown] Ertapenem [INVanz] 1 gm IV DAILY vial 10/24/17 [Last Taken Unknown] Manager Transport Antibiotics: ertapenem 1g IV daily [facility] Antibiotic Stop Date: 10/31/17 Discharge Medications: Refer to the Discharge Home Medication list for PRN reason. - Orders Services needed: Registered Nurse, Certified Sorority Mother, Physical Therapy, Occupational Therapy Isolation Type: None Oxygen: 4L Diet Recommendation: no restrictions on diet - Labs/Radiology BMP Date: 10/28/17 - Follow Up Care Current Providers and Referrals: Patient,NotPresent [Unknown] - As per Instructions
[2017-10-24] MEDS: VENLAFAXINE XR 75 MG CAP PO SCH (10:06)
--- NOTE | 2017-10-24 10:25 | GDS ---
ALL DIAGNOSES: 1. Encephalopathy. 2. Sepsis. 3. Urinary tract infection and Escherichia coli bacteremia. 4. Chronic hypoxic respiratory failure. 5. Paroxysmal atrial fibrillation. 6. History of a pulmonary embolus. 7. Morbid obesity. 8. Urinary retention. HOSPITAL COURSE BY PROBLEM: 1. E coli bacteremia and sepsis: This caused her initial confusion. The source is a urinary tract infection. Her sepsis physiology is markedly improved , as has her mental status. She still has some mild visual hallucinations and delirium. She is seen by Infectious Disease. Recommend a total of 10-day course of antibiotics. Given her allergies, as well as amiodarone use, recommendation is to complete her course of antibiotics with ertapenem. Her last day will be October 30. She is receiving her first dose now as an inpatient here. PICC team did not attempt PICC as this had been impossible in 2016. [facility] is comfortable with peripheral IVs given the short anticipated duration of antibiotics. 2. Urinary retention: Joaquin was placed in the emergency department. This will be removed today. She should be followed for adequate urinary output at [facility]. 3. Elevated bicarb: She is on acetazolamide as an outpatient. I have restarted this on discharge. Recommend rechecking her basic metabolic panel a few days after discharge. I have written for this. FOLLOWUP: She does not need followup with Infectious Disease per their recommendations. She may follow up as needed with Dr. Leung if any additional concerns arise. BILLING: I spent more than 30 minutes on the day of discharge coordinating care. /[id number]/MODL MTDD
[2017-10-24] MEDS: VENLAFAXINE XR 37.5 MG CAP PO SCH (10:28)
[2017-10-24] MEDS: predniSONE 5 MG TAB PO SCH (10:28)
[2017-10-24] MEDS: PANTOPRAZOLE SODIUM 40 MG TAB PO SCH (10:28)
[2017-10-24] MEDS: APIXABAN 5 MG TAB PO SCH (10:28)
[2017-10-24] MEDS: AMIODARONE HCL 200 MG TAB PO SCH (10:28)
[2017-10-24] MEDS: oxyCODONE IR 5 MG TAB PO SCH (10:29)
[2017-10-24] MEDS: NYSTATIN POWDER 15 GM BTL TP SCH (10:29)
[2017-10-24] MEDS: DILTIAZEM CD 180 MG CAP PO SCH (10:29)
--- NOTE | 2017-10-24 11:58 | ASMTDCNOTE ---
Case Management Discharge Discharge Order Complete? Answers: Yes Patient to Obtain Answers: Other Notes: [facility] Medications Transportation Arranged Answers: Other Notes: bariatric stretcher arranged by Orion at [facility] Transport will Pick (Date 10/24/2017 02:30 PM & Time) Case Management Transport Answers: Yes Notes: requires Bariatric Form Complete stretcher transport Faxed Final Orders Answers: Yes Notes: to [facility] Agency/Facility Transfer Answers: Yes Notes: to [facility] Report Printed & Faxed to Receiving Agency Discharge Comments Notes: 10/24/2017 Case Management Note Pt to return to [facility] where she resides. Unable to place PICC yesterday. [facility] agreed to use peripheral iv for the remaining 6 doses of ertapenem. RN called report. Faxed final orders. Transport arranged by Orion from [facility]. [facility] bariatric stretcher transport to product picker pt at 14:30. Date Signed: 10/24/2017 11:57 AM Electronically Signed By:Whitney Roland RN
--- NOTE | 2017-10-24 11:59 | ASDISCHSUM ---
Discharge Information Plan Status:SNF Medically Cleared to Leave:10/24/2017 Discharge Date:10/24/2017 CM D/C Disposition:Half-Way Facility ADT D/C Disposition:Half-Way Facility Projected Discharge Date:10/22/2017 11:00 AM Transportation at D/C:ALS/BLS Discharge Delay Reason: Follow-Up Date:10/22/2017 11:00 AM Discharge Slot: Final Diagnosis: Placement Information Referral Type:*Residential/SNF Referral ID:[id number] Provider Name:Brianne Kaur/AbbieBizGreet TMS [facility] Address 1:[address] Address 2: Fax Number: [facility]:[place] Selection Factors: State:[place] Patient Contact Information Contact Name:MATHEW Relationship: Address:[address] Work Phone: [facility]:[place] Alternate Phone: State/Zip Code:[place] [address] Email: Financial Information Financial Class:Medicare Primary Plan Desc:MEDICARE INPATIENT Primary Plan Number:[id number] Secondary Plan Desc:[place] Secondary Plan Number:[id number] Assessment Information LACE LACE Acuity / Level of Answers: Yes Care: Did the patient have an inpatient admission? Comorbidities - select Answers: Chronic pulmonary disease all that apply Congestive heart failure Coronary Artery Disease Diabetes (uncontrolled or controlled) Opioid dependence / Chronic pain Other Notes: AFib; Hx of PE # of Emergency department Answers: 1-2 visits in the last 6 months Social determinants Answers: Mental health diagnosis (anxiety, depression, pers onality disorders, etc.) Score: 19 Date Signed: 10/20/2017 08:36 AM Electronically Signed By:Vianney Power [facility] Initial CM Assessment Living Arrangements What is your living Answers: With Spouse arrangement? Who do you live with? Type Of Residence What kind of residence do Answers: Apartment you live in? Discharge Plan Comments Coordination Status Comments Notes: Patient is a 72yo female with HX of morbid obesity, AF, CHRF, COPD, and PE presents with fever and altered mental status. Patient was admitted for sepsis, acute encephalopathy, CHRF and AF. Cardiac rehab has been ordered. D/C needs TBD. CM will follow. Date Signed: 10/20/2017 09:49 AM Electronically Signed By:Amarilis Oconnell LCSW [facility] CM Progress Note CM Note CM Note Notes: Pts case discussed w/ Dr. Herrera regarding d/c POC. Pt lives at [facility]. CM spoke to Orion at [facility] and sent him updates. CM to follow. Plan: [facility] Date Signed: 10/22/2017 01:53 PM Electronically Signed By:DARON Alejandre [facility] Progress Note CM Note CM Note Notes: 10/23/2017 Case Management Note Discussed case with Orion from [facility] in person. Orion can be reached at [phone]. Per ID note pt to have PICC placed and 7 days of ertapenam. Planning for d/c over the weekend. Orion in agreement. Faxed updates to [facility]. Case Management d/c poc: return to [facility] where pt resides. Case Management to follow. Date Signed: 10/23/2017 12:28 PM Electronically Signed By:Whitney Roland RN Case Management Discharge Plan Note Case Management Discharge Discharge Order Complete? Answers: Yes Patient to Obtain Answers: Other Notes: [facility] Medications Transportation Arranged Answers: Other Notes: bariatric stretcher arranged by Orion at [facility] Transport will Pick (Date 10/24/2017 02:30 PM & Time) Case Management Transport Answers: Yes Notes: requires Bariatric Form Complete stretcher transport Faxed Final Orders Answers: Yes Notes: to [facility] Agency/Facility Transfer Answers: Yes Notes: to [facility] Report Printed & Faxed to Receiving Agency Discharge Comments Notes: 10/24/2017 Case Management Note Pt to return to [facility] where she resides. Unable to place PICC yesterday. [facility] agreed to use peripheral iv for the remaining 6 doses of ertapenem. RN called report. Faxed final orders. Transport arranged by Orion from [facility]. [facility] bariatric stretcher transport to poultry picking machine tender pt at 14:30. Date Signed: 10/24/2017 11:57 AM Electronically Signed By:Whitney Roland RN Intervention Information Intervention Type:*IM-Signed Date of Service:10/23/2017 02:46 PM Patient Type:Inpatient Staff Member:Vianney Power Hours: Discipline: Severity: Comment:
== END 2017-10-24 14:46 | DRG 871 ==
LOC: EDUNIT# → F2N 04:30 → F2W 16:48
PROVIDERS: ADMIT Student in an Organized Health Care Education/Training Program; ATTEND Student in an Organized Health Care Education/Training Program
DX: A41.51 Sepsis due to Escherichia coli [E. coli] (principal); G93.40 Encephalopathy, unspecified; N39.0 Urinary tract infection, site not specified; J44.9 Chronic obstructive pulmonary disease, unspecified; J96.11 Chronic respiratory failure with hypoxia; E11.9 Type 2 diabetes mellitus without complications; I48.0 Paroxysmal atrial fibrillation; E66.01 Morbid (severe) obesity due to excess calories; Z68.43 Body mass index [BMI] 50.0-59.9, adult; I25.10 Atherosclerotic heart disease of native coronary artery without angina pectoris; K21.9 Gastro-esophageal reflux disease without esophagitis; Z86.711 Personal history of pulmonary embolism; Z89.519 Acquired absence of unspecified leg below knee; Z87.440 Personal history of urinary (tract) infections; Z79.01 Long term (current) use of anticoagulants
CPT/HCPCS: 96365; G0009; J1335; J2185; J3370; J7512

== ENCOUNTER → 2017-11-23 | Outpatient (CLI) | payer OTHER, MEDICAID | LOC: BHFA 13:00 | PROVIDERS: ATTEND Internal Medicine Cardiovascular Disease | DX: I48.91 Unspecified atrial fibrillation (principal); E66.01 Morbid (severe) obesity due to excess calories; R06.02 Shortness of breath ==

== ENCOUNTER 2018-07-03 07:40 | Emergency (ER) | payer OTHER ==
--- NOTE | 2018-07-03 07:54 | EDPHY ---
H & P Time Seen by Provider: 07/03/18 07:45 HPI/ROS: CHIEF COMPLAINT: Brought in by ambulance for reported low O2 sat HISTORY OF PRESENT ILLNESS: The patient is brought in by ambulance for reported low oxygen saturation noted at her residential. Patient has a history of morbid obesity. COPD and heart failure. The patient is on amiodarone, diltiazem, anticoagulated and chronic oxygen 4-6 L/min. The patient currently denies any acute complaints. She has complaints surrounding global fatigue. She denies any acute cough or fever. She denies dysuria. The patient was recently evaluated by her primary care team at the residential. She had a chest x-ray which demonstrated no evidence of pneumonia. She had a urine culture performed 2 days ago which demonstrated no evidence of urinary tract infection. The patient had laboratory testing performed within the past 48 hr which demonstrates no leukocytosis or metabolic derangement. The patient arrives and is in no acute distress without acute complaints. REVIEW OF SYSTEMS: A comprehensive 10 point review of systems is otherwise negative aside from elements mentioned in the history of present illness. Source: Patient, EMS - Medical/Surgical History Hx Asthma: Yes Hx Chronic Respiratory Disease: Yes Hx Diabetes: Yes Hx Cardiac Disease: Yes Hx Renal Disease: No Hx Cirrhosis: No Hx Alcoholism: No Hx HIV/AIDS: No Hx Splenectomy or Spleen Trauma: No Other PMH: morbid obesity, DM2 with peripheral neuropathy, hypothyroid, COPD, PE , CHF, HANY, asthma, GERD, afib, CAD, pain, depression - Social History Smoking Status: Unknown if ever smoked Alcohol Use: None Drug Use: None - Physical Exam Exam: General Appearance: Obese female, no acute distress Eyes: Pupils equal and round no pallor or injection ENT, Mouth: Mucous membranes moist Respiratory: There are no retractions, lungs are clear to auscultation Cardiovascular: Regular rate and rhythm Gastrointestinal: Abdomen is soft and nontender, no masses, bowel sounds normal Neurological: 5/5 strength noted all 4 extremities Skin: Warm and dry, no rashes Musculoskeletal: Neck is supple nontender Extremities: Left BKA Constitutional: Initial Vital Signs Temperature (C) 37.0 C 07/03/18 07:49 Heart Rate 79 07/03/18 07:49 Respiratory Rate 18 07/03/18 07:49 Blood Pressure 126/76 H 07/03/18 07:49 O2 Sat (%) 97 07/03/18 07:49 O2 Delivery Mode Nasal Cannula O2 (L/minute) 6 Allergies/Adverse Reactions: Cephalosporins Allergy (Verified 08/20/15 16:28) chlorpromazine Allergy (Verified 08/20/15 16:28) clarithromycin Allergy (Verified 08/20/15 16:28) clindamycin Allergy (Verified 08/20/15 16:28) doxycycline Allergy (Verified 08/20/15 16:28) erythromycin base Allergy (Verified 08/20/15 16:28) iodine Allergy (Verified 08/20/15 16:28) ketorolac Allergy (Verified 08/20/15 16:28) Latex, Natural Rubber Allergy (Verified 08/20/15 16:28) Penicillins Allergy (Verified 08/20/15 16:28) Sulfa (Sulfonamide Antibiotics) Allergy (Verified 08/20/15 16:28) Home Medications: Medication Instructions Recorded Acetaminophen [Tylenol 325mg (*)] 650 mg PO DAILY 08/20/15 Amiodarone HCl [Pacerone (*)] 200 mg PO DAILY 08/20/15 Atorvastatin Calcium [Lipitor 20 20 mg PO HS 08/20/15 mg (*)] Diltiazem HCl [Diltiazem 24Hr Cd] 180 mg PO DAILY 08/20/15 Docusate Sodium [Colace 100 MG (*)] 200 mg PO BID 08/20/15 Lidocaine 5% [Lidoderm 5% Patch] 1 ea TD DAILY PRN 08/20/15 Nystatin Powder [Mycostatin Powder] 1 susu TP BID 08/20/15 Omeprazole [Prilosec 20 mg] 20 mg PO DAILY 08/20/15 Potassium Cl [Klor-Con 20 meq (*)] 20 meq PO BID 08/20/15 oxyCODONE IR [Oxycodone Ir (*)] 5 mg PO Q8HRS PRN 08/20/15 Acetaminophen [Tylenol 325mg (*)] 650 mg PO Q4HRS PRN 10/20/17 Apixaban [Eliquis] 5 mg PO BID 10/20/17 Bisacodyl [Dulcolax] 10 mg RC DAILY PRN 10/20/17 Fluticasone/Vilanterol [Breo 1 each IH DAILY 10/20/17 Ellipta 200-25 Mcg INH] Ipratropium/Albuterol [Duoneb (*)] 3 ml IH Q4HRS PRN 10/20/17 Levothyroxine [Synthroid 175 mcg 175 mcg PO DAILY06 10/20/17 (*)] Ondansetron Odt [Zofran Odt 4 mg 4 mg PO Q6HRS PRN 10/20/17 (*)] Venlafaxine Xr [Effexor Xr 37.5MG 37.5 mg PO DAILY 10/20/17 (*)] Venlafaxine Xr [Effexor Xr 75MG 150 mg PO DAILY 10/20/17 (*)] acetaZOLAMIDE [Diamox] 500 mg PO BID 10/20/17 guaiFENesin [Mucinex 600 MG (*)] 600 mg PO BID PRN 10/20/17 oxyCODONE IR [Oxycodone Ir (*)] 5 mg PO BID 10/20/17 predniSONE 5 mg PO DAILY 10/20/17 Ertapenem [INVanz] 1 gm IV DAILY vial 10/24/17 Medical Decision Making - Diagnostics EKG Interpretation: EKG: Complete interpretation has been separately recorded in the [email or web address] archive. Summary impression: Sinus rhythm, rate 77, no ischemic changes noted ED Course/Re-evaluation: Patient arrives to Emergency Department with no complaints, stable vital signs and no evidence of acute hypoxemia. The patient has had an extensive workup over the past 48 hr with a stable chest x-ray, unremarkable urine culture and normal laboratory testing. At this point time the patient is without acute complaints. She has no documented hypoxemia in the emergency department. I do feel that she is stable to be returned to her residential. Differential Diagnosis: Differential diagnosis considered includes COPD, pneumonia, dehydration, arrhythmia Departure - Departure Disposition: Home, Routine, Self-Care Clinical Impression: Morbid obesity, COPD (chronic obstructive pulmonary disease) Condition: Good Instructions: COPD (Chronic Obstructive Pulmonary Disease) (ED) Additional Instructions: 1. Oxygen saturation in the emergency department today is noted to be normal at 97% on 5 L of oxygen. 2. Return to the ED for acute symptoms such as severe shortness of breath, fever , acute pain or other concerns.
--- NOTE | 2018-07-03 08:04 | CPEKG ---
Test Reason : OPEN Blood Pressure : / mmHG Vent. Rate : 077 BPM Atrial Rate : 077 BPM P-R Int : 171 ms QRS Dur : 111 ms QT Int : 409 ms P-R-T Axes : -16 082 043 degrees QTc Int : 463 ms Sinus rhythm Borderline right axis deviation Low voltage, precordial leads Borderline T abnormalities, anterior leads Confirmed by Perry Sarah ([id number] on 07/03/2018 8:03:32 AM Referred By: Perry Sarah Confirmed By:Perry Sarah
[2018-07-03 08:22] VITALS: BP 125/72
== END 2018-07-03 09:10 | disposition home or self-care (01) ==
LOC: EDUNIT#
DX: J44.9 Chronic obstructive pulmonary disease, unspecified (principal); E66.01 Morbid (severe) obesity due to excess calories; E11.9 Type 2 diabetes mellitus without complications; I48.91 Unspecified atrial fibrillation; I50.9 Heart failure, unspecified; I25.10 Atherosclerotic heart disease of native coronary artery without angina pectoris; Z86.711 Personal history of pulmonary embolism